=== PATIENT | female | born 1935 | race Caucasian/White ===

== ENCOUNTER 2016-12-13 14:01 | Emergency (ER) | payer OTHER ==
[~2016-12-13 14:01] MED LIST: ANASTROZOLE1 MG PO; ASPIRIN ADULT L81 MG PO; COZAAR25 MG PO; FUROSEMIDE20 MG PO
--- NOTE | 2016-12-13 15:33 | DIAGNOSTIC IMAGING REPORT ---
PROCEDURE: XR CHEST 1 VIEW INDICATION: CHEST PAIN TECHNIQUE: Portable AP view 02:52 p.m. COMPARISON: Chest 12/06/2015 FINDINGS: Stable mild cardiomegaly. Normal pulmonary vascularity. Lungs are clear. Stable bony thorax. Large hiatal hernia IMPRESSION: 1. Large hiatal hernia.
--- NOTE | 2016-12-13 16:11 | ED ORDER SUMMARY ---
..... Patient: LORRAINE MADERA OrderSheet [facility] VisitID: [id number] [place] [address] 81y, F Registration Date/Time: 12/13/2016 ORDER SHEET Weight: 69.3 kg (stated) Allergies: Clindamycin HCl, Etodolac, Penicillins GENERAL ORDERS: Chest 1V Urgent (14:41 12/13/2016 PHutchinson DO) (Ack 14:45 RKaruga) (15:21 JSanders R.N.) Director Public (Continuous) (14:42 12/13/2016 PHutchinson DO) (15:05 JSanders R.N.) UA-Culture if indicated Urgent (14:42 12/13/2016 PHutchinson DO) (Ack 14:45 RKaruga) (15:05 JSanders R.N.) Cardiac Panel Stat (14:42 12/13/2016 PHutchinson DO) (Ack 14:45 RKaruga) (15:20 JSanders R.N.) BNP Urgent (14:42 12/13/2016 PHutchinson DO) (Ack 14:45 RKaruga) (15:20 JSanders R.N.) D-Dimer Urgent (14:42 12/13/2016 PHutchinson DO) (Ack 14:45 RKaruga) (14:45 PHutchinson DO) (Cancelled: Other14:45 PHutchinson DO) Amylase Urgent (14:42 12/13/2016 PHutchinson DO) (Ack 14:45 RKaruga) (15:20 JSanders R.N.) PT with INR Urgent (14:42 12/13/2016 PHutchinson DO) (Ack 14:45 RKaruga) (15:20 JSanders R.N.) Lipase Urgent (14:42 12/13/2016 PHutchinson DO) (Ack 14:45 RKaruga) (15:20 JSanders R.N.) TSH Urgent (14:42 12/13/2016 PHutchinson DO) (Ack 14:45 RKaruga) (15:20 JSanders R.N.) Pulse oximeter (14:42 12/13/2016 [facility]) (15:05 JSanders R.N.) EKG - ER Stat (14:42 12/13/2016 [facility]) (Ack 14:47 RKaruga) (14:51 LTapper) Vitals (14:42 12/13/2016 [facility] DO) (15:05 JSanders R.N.) Diet (Please order in [employer]) (heart healthy ) (start with dinner tonight please ) (17:02 12/13/2016 DDean R.N. per protocol) (17:22 JSanders R.N.) MEDICATION ORDERS: Aspirin PO 325 mg (NOW) (14:41 12/13/2016 [facility]) (Cancelled: [id number] [facility]) Aspirin PO 325 mg (Do not crush or chew, NOW) (15:19 12/13/2016 [facility]) (15:26 JSanders R.N.) Potassium Chloride PO 40 meq (NOW) (17:04 12/13/2016 [facility]) (17:41 JSanders R.N.) Lovenox Subcut 60 mg (HIGH ALERT MEDICATION, NOW) (17:05 12/13/2016 [facility]) (17:34 JSanders R.N.) NitroGLYCERIN Paste Topical 1.5 in. (NOW, to CW) (17:05 12/13/2016 [facility]) (17:42 JSanders R.N.) IV FLUIDS: IV NS : initial bolus 250 mL (1000 mL/hr), then 250 mL/hr for X3 (NOW) (14:42 12/13/2016 [facility]) (15:38 JSanders R.N.) Protonix IVP 40mg 40 mg (Mix in NS 10ml over 2min) (17:28 12/13/2016 [facility]) (17:59 JSanders R.N.) ORDER SHEET NOTES: [Electronically signed by Jeannette Tenorio R.N. (19:19 12/13/2016)] [Electronically signed by Zenon Paredes DO (23:53 12/13/2016)] [Electronically locked/signed by Jeannette Tenorio R.N. (19:19 12/13/2016)]
--- NOTE | 2016-12-13 16:11 | ED ORDER SUMMARY ---
..... Patient: LORRAINE MADERA OrderSheet [facility] VisitID: [id number] [place] [address] 81y, F Registration Date/Time: 12/13/2016 ORDER SHEET Weight: 69.3 kg (stated) Allergies: Clindamycin HCl, Etodolac, Penicillins GENERAL ORDERS: Chest 1V Urgent (14:41 12/13/2016 PHutchinson DO) (Ack 14:45 RKaruga) (15:21 JSanders R.N.) Manager Of Marketing (Continuous) (14:42 12/13/2016 PHutchinson DO) (15:05 JSanders R.N.) UA-Culture if indicated Urgent (14:42 12/13/2016 PHutchinson DO) (Ack 14:45 RKaruga) (15:05 JSanders R.N.) Cardiac Panel Stat (14:42 12/13/2016 PHutchinson DO) (Ack 14:45 RKaruga) (15:20 JSanders R.N.) BNP Urgent (14:42 12/13/2016 PHutchinson DO) (Ack 14:45 RKaruga) (15:20 JSanders R.N.) D-Dimer Urgent (14:42 12/13/2016 PHutchinson DO) (Ack 14:45 RKaruga) (14:45 PHutchinson DO) (Cancelled: Other14:45 PHutchinson DO) Amylase Urgent (14:42 12/13/2016 PHutchinson DO) (Ack 14:45 RKaruga) (15:20 JSanders R.N.) PT with INR Urgent (14:42 12/13/2016 PHutchinson DO) (Ack 14:45 RKaruga) (15:20 JSanders R.N.) Lipase Urgent (14:42 12/13/2016 PHutchinson DO) (Ack 14:45 RKaruga) (15:20 JSanders R.N.) TSH Urgent (14:42 12/13/2016 PHutchinson DO) (Ack 14:45 RKaruga) (15:20 JSanders R.N.) Pulse oximeter (14:42 12/13/2016 [facility]) (15:05 JSanders R.N.) EKG - ER Stat (14:42 12/13/2016 [facility]) (Ack 14:47 RKaruga) (14:51 LTapper) Vitals (14:42 12/13/2016 [facility] DO) (15:05 JSanders R.N.) Diet (Please order in [employer]) (heart healthy ) (start with dinner tonight please ) (17:02 12/13/2016 DDean R.N. per protocol) (17:22 JSanders R.N.) MEDICATION ORDERS: Aspirin PO 325 mg (NOW) (14:41 12/13/2016 [facility]) (Cancelled: [id number] [facility]) Aspirin PO 325 mg (Do not crush or chew, NOW) (15:19 12/13/2016 [facility]) (15:26 JSanders R.N.) Potassium Chloride PO 40 meq (NOW) (17:04 12/13/2016 [facility]) (17:41 JSanders R.N.) Lovenox Subcut 60 mg (HIGH ALERT MEDICATION, NOW) (17:05 12/13/2016 [facility]) (17:34 JSanders R.N.) NitroGLYCERIN Paste Topical 1.5 in. (NOW, to CW) (17:05 12/13/2016 [facility]) (17:42 JSanders R.N.) IV FLUIDS: IV NS : initial bolus 250 mL (1000 mL/hr), then 250 mL/hr for X3 (NOW) (14:42 12/13/2016 [facility]) (15:38 JSanders R.N.) Protonix IVP 40mg 40 mg (Mix in NS 10ml over 2min) (17:28 12/13/2016 [facility]) (17:59 JSanders R.N.) ORDER SHEET NOTES: [Electronically signed by Jeannette Tenorio R.N. (19:19 12/13/2016)] [Electronically signed by Zenon Paredes DO (23:53 12/13/2016)] [Electronically locked/signed by Jeannette Tenorio R.N. (19:19 12/13/2016)]
--- NOTE | 2016-12-13 16:11 | ED NURSING NOTES ---
Clinical Report - Nurses [facility] [address] [place] [address] 12/13/2016 14:08 Patient: LORRAINE MADERA TRIAGE Triage time 14:Dec 13 2016. Acuity: LEVEL 3. Chief Complaint: SHORTNESS OF BREATH and WHEEZING and (Patient has had a cough since June gradually getting worse, chest pain once every three weeks). 14:34 12/13/16. SEPSIS SCREEN: Sepsis Screen. Negative (no infection suspected/documented). PILAR COMA SCORE: [place] Coma Scale: 15- eyes open spontaneously (4); best verbal response- oriented x 4 (5); best motor response- obeys commands (6). --14:34 Jeannette Tenorio R.N. 14:24 12/13/16. BP: 157/70 (regular adult cuff) taken on the left arm, while sitting. HR: 89. RR: 18. O2 saturation: 100% on room air. Temp: 98.4 F (oral). Pain level now: 0/10. --14:34 Jeannette Tenorio R.N. Weight: 69.3 kg stated. Height/Length: 63 inches Per Patient. BMI: 27.1. --14:28 Jeannette Tenorio R.N. Medications Anastrozole Oral (Tablet 1 mg) 1 tablet, daily. Furosemide Oral (Tablet 20 mg) 1 tablet, daily. Losartan Potassium Oral (Tablet 100 mg) 1 tablet, daily. --14:29 Jeannette Tenorio R.N. The following entry was struck and corrected by Jeannette Tenorio R.N., 16:12 (12/13/16) Reason for correction - other(correction). <<STRICKEN ENTRY-- Losartan Potassium Oral, daily. --14:29 Jeannette Tenorio R.N. --END STRIKE>> The following entry was struck and corrected by Jeannette Tenorio R.N., 16:12 (12/13/16) Reason for correction - other(correction). <<STRICKEN ENTRY-- Anastrozole Oral. --14:29 Jeannette Tenorio R.N. --END STRIKE>> The following entry was struck and corrected by Jeannette Tenorio R.N., 16:12 (12/13/16) Reason for correction - other(correction). <<[facility]-- Furosemide Oral. --14:29 Jeannette Tenorio R.N. --END STRIKE>>. Allergies Clindamycin HCl. Etodolac. Penicillins. --14:31 Jeannette Tenorio R.N. History Arrived by private vehicle. Historian: patient. This started today. ( Patient was just at today, they wanted to transfer her but she wanted to come ER, Took nitro last night and Chest pain was relieved). She has had a cough and chest pain. Treatment [employer]: None. PAST MEDICAL HX: Hypertension. Congestive heart failure. SOCIAL HX: Former smoker, end date 1961. No alcohol use or drug use. No infectious disease exposure. ABUSE ASSESSMENT: No report of abuse. --14:34 Jeannette Tenorio R.N. PROBLEMS: Cancer [Active]. --14:31 Jeannette Tenorio R.N. Chest Pain. Heart Disease. Coronary Artery Disease. Abnormal Test. Arrhythmia. Unstable Angina. --14:31 Jeannette Tenorio R.N. Cataracts. Chronic kidney disease stage 3. Gastroesophageal Reflux Disease. Hyperlipidemia. Atrial Fibrillation. DVT - Deep Venous Thrombosis. GI Bleeding. Arthritis. --16:10 Jeannette Tenorio R.N. Breast Cancer. --16:11 Jeannette Tenorio R.N. The following entry was modified by Jeannette Tenorio R.N., 16:10 <<[facility] ENTRY-- Congestive Heart Failure. --03:34 Jeannette Tenorio R.N. --END STRIKE>> The following entry was modified by Jeannette Tenorio R.N., 16:10 <<[facility] ENTRY-- Hypertension. --01:20 Jeannette Tenorio R.N. --END STRIKE>>. ADDITIONAL SURGERIES: Fracture Repair. Hysterectomy. --14:31 Jeannette Tenorio R.N. Coronary Angioplasty. --16:10 Jeannette Tenorio R.N. Interventions ID band on patient. To treatment room. --14:34 Jeannette Tenorio R.N. PHYSICAL ASSESSMENT 14:37 12/13/16. Ambulatory to room. GENERAL / NEURO / PSYCH: Alert. Oriented X 4. RESPIRATORY: No respiratory distress. Respirations not labored. Breath sounds within normal limits. CVS: Capillary refill less than 2 seconds. GI / : Abdomen soft and nontender. EXTREMITIES: No lower extremity edema. SKIN: Skin is warm. Normal skin turgor. --14:37 Jeannette Tenorio R.N. NURSING PROGRESS NOTES 14:37 12/13/16. The plan of care for this patient has been created. Monitoring of patient in place. Patient gowned. Head of bed elevated. Reassurance given. Two patient identifiers checked. Call light placed in reach. Side rails up x 1. Bed placed in lowest position. Brakes of bed on. Patient ready for evaluation- chart flagged and ED physician notified. --14:37 Jeannette Tenorio R.N. EKG time: (14:47 PM). EKG was performed by a tech and shown to the ED physician. --14:51 Catrachito Lei 15:12 12/13/2016 Site #1 started via IV in the left antecubital space with an 20g angiocath, with aseptic technique and good blood return; one attempt. Blood drawn: rainbow set. Saline lock flushed with 10 mL saline. --15:27 Jeannette Tenorio R.N. 15:26 12/13/2016 Aspirin PO Tablets 325 mg given. Allergies verified and confirmed 5 rights. --15:26 Jeannette Tenorio R.N. 15:30 12/13/16. ( Patient reading through paperwork, she informed me she has hx of GI bleed but physician said to go ahead and give. Patient doing well, alert and laughing). --15:30 Jeannette Tenorio R.N. 15:27 12/13/16. BP: 174/67 (regular adult cuff) taken on the right arm, while sitting. HR: 70. RR: 18. O2 saturation: 100% on room air. Temp: 98.2 F (oral). Pain level now: 0/10. --15:30 Jeannette Tenorio R.N. 15:38 12/13/2016 Started bag #1 1000 mL IV Fluids IV NS (Saline); at 250 mL/hr over 1 hour(s) via site #1 via IV pump. Allergies verified and confirmed 5 rights. IV patency established. IV site checked: no pain, redness, or swelling. IV flushed thoroughly pre- and post-medication administration. --15:38 Jeannette Tenorio R.N. 15:59 12/13/16. BP: 204/64 (regular adult cuff) taken on the right arm, while sitting. HR: 70. RR: 18 (regular). O2 saturation: 100% on room air. Temp: 97.4 F. Pain level now: 0/10. --16:01 Jeannette Tenorio R.N. 16:01 12/13/16. ( patients BP is increasing, she did mention she took her BP meds today, requested patient put paperwork aside and lay back to relax, she requested TV be turned on because that usually helps with HTN). --16:01 Jeannette Tenorio R.N. 16:02 12/13/2016 IV Fluids IV NS via IV site #1 Rate Changed: bag #1 250 mL/hr via IV pump. IV patency established. IV site checked: no pain, redness, or swelling. IV flushed thoroughly. Confirmed 5 Rights. --16:02 Jeannette Tenorio R.N. 16:05 12/13/16. ( Lung sounds are clear, continued another 250mL per orders). --16:05 Jeannette Tenorio R.N. 16:30 12/13/2016 IV Fluids IV NS via IV site #1 Rate Changed: bag #1 decreased to 250 mL/hr via IV pump. IV patency established. IV site checked: no pain, redness, or swelling. IV flushed thoroughly. --16:30 Yudy Vega R.N. 16:30 12/13/16. BP: 165/85. HR: 67. RR: 18. O2 saturation: 100%. Temp: deferred. Pain level now: 0/10. --16:30 Yudy Vega R.N. 16:36 12/13/16. --16:36 Jeannette Tenorio R.N. 16:35 12/13/16. BP: 165/86 (regular adult cuff) taken on the right arm, while sitting. HR: 66. RR: 18 (regular). O2 saturation: 100% on room air. Temp: 98 F (oral). Pain level now: 0/10. --16:36 Jeannette Tenorio R.N. 17:19 12/13/16. BP: 142/70 (regular adult cuff) taken on the right arm, while sitting. HR: 79. RR: 18 (regular). O2 saturation: 100% on room air. Temp: 98.2 F (oral). Pain level now: 0/10. --17:20 Jeannette Tenorio R.N. 17:20 12/13/16. ( Patient doing well, she says she hasn't coughed since being here. LS clear). --17:20 Jeannette Tenorio R.N. 17:34 12/13/2016 Lovenox (Enoxaparin Sodium) Subcutaneous 60 mg given. Given in the left abdomen. Allergies verified and confirmed 5 rights. --17:34 Jeannette Tenorio R.N. 17:41 12/13/2016 Potassium Chloride (Potassium Chloride ER) PO Tablets 40 meq given. Allergies verified and confirmed 5 rights. --17:41 Jeannette Tenorio R.N. 17:42 12/13/2016 NITROGLYCERIN PASTE Topical Paste 1.5 inch. Applied to the left chest. Allergies verified and confirmed 5 rights. --17:42 Jeannette Tenorio R.N. 17:42 12/13/16. ( Patient eating dinner). --17:42 Jeannette Tenorio R.N. 17:50 12/13/2016 PROTONIX (Pantoprazole Sodium) IVP 40 mg given over 10 minute(s) via site #1. Allergies verified and confirmed 5 rights. IV patency established. IV site checked: no pain, redness, or swelling. IV flushed thoroughly pre- and post-medication administration. IVP given by RN. --17:59 Jeannette Tenorio R.N. 18:20 12/13/16. ( Patient finished with dinner, working on her cell phone, she is feeling well per patient). --18:20 Jeannette Tenorio R.N. 18:19 12/13/16. BP: 141/57 (regular adult cuff) taken on the right arm, while sitting. HR: 78. RR: 16 (regular). O2 saturation: 98% on room air. Temp: 98.4 F. Pain level now: 0/10. --18:20 Jeannette Tenorio R.N. 18:53 12/13/16. ( Patient approached to sign paperwork for transfer but patient refused and said she did not want to go to [facility] and be admitted, I explained that the doctor informed her it would be an admit to [facility] but patient still refuses and says she would like to go home. Physician notified of this). --18:53 Jeannette Tenorio R.N. 19:05 12/13/16. Care transferred and report given (EMS). --19:05 Jeannette Tenorio R.N. 19:02 12/13/16. BP: 160/50 (regular adult cuff) taken on the right arm, while sitting. HR: 78. RR: 16 (regular). O2 saturation: 100% on room air. Temp: 98.4 F (oral). Pain level now: 0/10. --19:05 Jeannette Tenorio R.N. DISPOSITION / DISCHARGE 19:16 12/13/2016 IV Fluids IV NS Discontinued: bag #1 completed upon discharge. Total amount infused: 1000 mL. IV patency established. IV site checked: no pain, redness, or swelling. IV flushed thoroughly. --19:16 Jeannette Tenorio R.N. Departure time: :Dec 13 2016. Transferred to [facility]. Summary of care provided to EMS (Dec 13 2016). Report was given to an EMT/P at the bedside. Report included patient's care, treatment, medications, reviewed medication reconcilliation, and condition (including any recent changes or anticipated changes). All questions were answered. Report was acknowledged and care was transferred. ( Patient transported by ALS with stock feeder to [facility] for admit/observance). --19:18 Jeannette Tenorio R.N. Locked/Released at 12/13/2016 19:19 by Jeannette Tenorio R.N.
--- NOTE | 2016-12-13 16:11 | ED CLINICAL REPORT ---
Clinical Report - Physicians/Mid Levels [facility] [address] [place] [address] 12/13/2016 14:08 Patient: LORRAINE MADERA Time Seen: 14:41. Arrived- By private vehicle. Historian- patient. HISTORY OF PRESENT ILLNESS Chief Complaint: CHEST PAIN. SHORTNESS OF BREATH. This started about 3 weeks ago and is still present. It was gradual in onset and has been waxing/waning. Onset during light activity. At its maximum, severity described as moderate. When seen in the E.D., it was gone. Modifying factors- worsened by exertion. Relieved by nitroglycerin (one, from patients own supply). It is described as pressure and it is described as located in the left chest area. No radiation. No nausea or vomiting. She has had difficulty breathing and has experienced diaphoresis. Similar symptoms previously: Diagnosis: coronary disease. Recent medical care: The patient was seen recently in the office. Seen for similar symptoms. REVIEW OF SYSTEMS No fever, chills, pedal edema, calf pain or fainting episodes. No headache, sore throat, abdominal pain, black stools or difficulty with urination. No skin rash, enlarged lymph nodes, joint pain or bloody stools. The patient has had a cough. She has had moderate, intermittent palpitations. The palpitations have lasted only minutes. All systems otherwise negative, except as recorded above. PAST HISTORY See nurses notes. Hypertension. Coronary artery disease. Prior angioplasty. Coronary stent. Congestive heart failure. No history of aortic disease or pulmonary embolism. GI bleeding told not to take ASA for this reason - no allergy. Osteoarthritis. Surgeries: Coronary angioplasty with stent placement. Had hysterectomy. Medications: Anastrozole Oral (Tablet 1 mg) 1 tablet, daily. Furosemide Oral (Tablet 20 mg) 1 tablet, daily. Losartan Potassium Oral (Tablet 100 mg) 1 tablet, daily. Allergies: Clindamycin HCl. Etodolac. Penicillins. SOCIAL HISTORY Former smoker, end date 1961. No alcohol use or drug use. Is a local resident. ADDITIONAL NOTES The nursing notes have been reviewed. PHYSICAL EXAM Vital Signs: 12/13/2016 14:24 BP: 157/70. HR: 89. RR: 18. O2 saturation: 100%. Temp: 98.4 F. Pain level now: 0/10. Appearance: Alert. Oriented X3. No acute distress. Eyes: Pupils equal, round and reactive to light. Eyes normal inspection. ENT: Pharynx normal. Neck: Normal inspection. Neck supple. CVS: Normal heart rate and rhythm. Heart sounds normal. Pulses normal. Respiratory: No respiratory distress. Breath sounds normal. Chest nontender. Abdomen: Soft and nontender. No mass. Back: Normal external inspection. Skin: No cyanosis. Skin warm and dry. Normal skin color. Normal skin turgor. No pallor or diaphoresis. Extremities: Extremities exhibit normal ROM. No calf tenderness. Neuro: Oriented X 3. No motor deficit. LABS, X-RAYS, AND EKG EKG: EKG time: (14:47). Normal sinus rhythm. Rate: 75. Normal P waves. Normal JAYASHREE. Q waves in lead III and aVF consistent with inferior infarction. LVH. Non-specific ST segment / T wave abnormalities. Non-specific T wave flattening in lead III and aVF. The study has been interpreted contemporaneously by me. The EKG appears to be a good tracing. Rhythm Strip #1: Normal sinus rhythm. Regular rhythm. Narrow QRS complexes. No ectopy. Chest X-ray: No acute disease. (large hiatal hernia). Views: PA. Technique: good. The X-rays were interpreted contemporaneously by me. A comparison with prior films reveals that the findings are unchanged. Laboratory Tests: UA-Culture if indicated: (ASHLEY: 12/13/2016 14:30) ( MsgRcvd 12/13/2016 15:02) Final results Test Result Flag Units (Reference) URINE COLOR YELLOW URINE APPEARANCE CLEAR URINE GLUCOSE NEGATIVE (NEGATIVE) URINE BILIRUBIN NEGATIVE (NEGATIVE) URINE KETONE NEGATIVE (NEGATIVE) URINE SPECIFIC GRAVITY <= 1.005 L (1.010-1.030) URINE PH 5.5 (5.0-8.0) URINE PROTEIN NEGATIVE (NEGATIVE) URINE UROBILINOGEN 0.2 EU/dL (0.2-1.0) URINE NITRITE NEGATIVE (NEGATIVE) URINE BLOOD NEGATIVE (NEGATIVE) URINE LEUK ESTERASE NEGATIVE (NEGATIVE) URINE RBC NONE SEEN rbc/hpf (0-1) URINE WBC RARE wbc/hpf (0-1) URINE EPITHELIAL CELLS RARE EPI/hpf (0-5) URINE BACTERIA NONE SEEN (NONE SEEN) URINE COMMENT CULT NOT INDICATED URINE CULTURES ARE SET-UP BASED ON THE FOLLOWING CRITERIA:POSITIVE NITRITEPOSITIVE LEUKOCYTE ESTERASEGREATER THAN 10 WHITE BLOOD CELLSMODERATE (2+) OR GREATER BACTERIA CBC w Diff: (ASHLEY: 12/13/2016 15:15) ( [facility] 12/13/2016 15:28) Final results Test Result Flag Units (Reference) WHITE BLOOD COUNT 9.5 K/uL (4.5-11.5) RED BLOOD COUNT 3.13 L M/uL (4.00-5.20) HEMOGLOBIN 10.2 L gm/dL (12.0-16.0) HEMATOCRIT 29.9 L % (36.0-46.0) MEAN CELL VOLUME 96 fL (80-100) MEAN CORPUSCULAR HGB 33 pg (26-34) MEAN CORPUSCULAR HGB CONC 34 g/dL (31-37) RED CELL DISTRIBUTION WIDTH 13.9 % (11.6-14.8) PLATELET COUNT 313 K/uL (150-400) NEUTROPHIL % 64.8 % (50-75) LYMPH % 23.6 L % (25-40) MONO % 10.2 % (3-14) EOSINOPHIL % 1.2 % (0-4) BASOPHIL % 0.2 % (0-2) PT with INR: (ASHLEY: 12/13/2016 15:15) ( [facility] 12/13/2016 15:33) Final results Test Result Flag Units (Reference) INR 0.9 (0.8-1.2) Low Intensity Therapy: INR 1.5-2.0 PT range 18.5-23.1Mod.Intensity Therapy: INR 2.0-3.0 PT range 23.1-31.5High Intensity Therapy: INR 2.5-3.5 PT range 27.4-35.5High Intensity Therapy 2: INR 3.0-4.0 PT range 31.5-39.3 BNP: (ASHLEY: 12/13/2016 15:15) ( [facility] 12/13/2016 15:46) Final results Test Result Flag Units (Reference) B-TYPE NATRIURETIC PEPTIDE 168 H pg/ml (5-100) Lipase: (ASHLEY: 12/13/2016 15:15) ( [facility] 12/13/2016 16:51) Final results Test Result Flag Units (Reference) LIPASE 123 U/L (73-393) AMYLASE 57 U/L (25-115) THYROID STIMULATING HORMONE 2.016 uIU/mL (0.30-3.74) CHEM 13 PANEL: (ASHLEY: 12/13/2016 15:15) ( [facility] 12/13/2016 16:04) Final results Test Result Flag Units (Reference) GLUCOSE 108 mg/dL (70-110) BUN 17 mg/dL (7-18) CREATININE 1.4 H mg/dL (0.6-1.3) Estimated GFR 38.26 mL/min Estimated GFR- 46.37 mL/min Note: Persistent reduction over 3 months in eGFR<60 mL/min/1.73 m2 defines CKD. Patients with eGFR values>=60 mL/min/1.73 m2 may also have CKD if evidence ofpersistent proteinuria. Additional information may be foundat www.kidney.org. SODIUM 141 mmol/L (136-145) POTASSIUM 3.2 L mmol/L (3.5-5.1) CHLORIDE 102 mmol/L (98-107) CARBON DIOXIDE 27 mmol/L (21-32) CALCIUM 10.2 H mg/dL (8.5-10.1) TOTAL PROTEIN 7.6 g/dL (6.4-8.2) ALBUMIN 4.3 g/dL (3.3-5.0) BILIRUBIN, TOTAL 0.6 mg/dL (0.0-1.0) ALKALINE PHOSPHATASE 83 U/L (46-116) AST (SGOT) 23 U/L (15-37) ALT (SGPT) 25 U/L (12-78) MAGNESIUM 2.0 mg/dL (1.8-2.4) CPK 58 U/L (24-260) TROPONIN I <0.05 ng/mL (0.00-1.5) TROPONIN REFERENCE RANGE:<0.1 NEGATIVE0.1-1.5 INDETERMINANT>1.5 POSITIVE . Pulse Oximetry: 12/13/2016 14:24 O2 saturation: 100%. (FIO2 - room air). Interpretation: normal. PROGRESS AND PROCEDURES Course of Care: ASA 325 mg PO given. Lovenox 60 mg subQ given. Pt with concerning history for angina. Neg trop I now, but will need repeat enzymes and functional assessment. 17:18 12/13/16. admit on hold (after initial d/w Dr. Staples and transition orders written) - Dr Staples refusing until he can talk with Dr León in about 2 hours about my suggestion for performing treadmill tomorrow night or before [address] Staples is suggesting transfer. Patient is stable. Discussed case with patient's primary care provider, (Maikol). Reviewed test results. Agreed upon treatment plan and decision to place in observation. Refers case to other health care provider. Discussed case with hospitalist, (Jhoan). Reviewed test results. Agreed upon treatment plan and decision to place in observation. Refers case to other health care provider. Call placed to health care provider [facility] hospitalist - call returned 17:58. Consult obtained. Dr Barreto ([facility]) - feels admission and rule out with functional assessment is appropriate - refers to the hospitalist for admission -Dr. Barreto paged 17:24. Patient/family counseled. Old ED records reviewed. Transfer orders written. Disposition: Transferred to [facility]. Condition: stable. CLINICAL IMPRESSION Precordial chest pain characterized as "discomfort" .12 lead EKG performed. Chronic systolic, congestive heart failure. Hiatal hernia. No obstruction or gangrene. Essential hypertension. Moderate chronic anemia. Hypokalemia. Renal insufficiency. (Electronically signed by Zenon Paredes DO 12/13/2016 23:53)
--- NOTE | 2016-12-13 16:11 | ED CLINICAL REPORT ---
Clinical Report - Physicians/Mid Levels [facility] [address] [place] [address] 12/13/2016 14:08 Patient: LORRAINE MADERA Time Seen: 14:41. Arrived- By private vehicle. Historian- patient. HISTORY OF PRESENT ILLNESS Chief Complaint: CHEST PAIN. SHORTNESS OF BREATH. This started about 3 weeks ago and is still present. It was gradual in onset and has been waxing/waning. Onset during light activity. At its maximum, severity described as moderate. When seen in the E.D., it was gone. Modifying factors- worsened by exertion. Relieved by nitroglycerin (one, from patients own supply). It is described as pressure and it is described as located in the left chest area. No radiation. No nausea or vomiting. She has had difficulty breathing and has experienced diaphoresis. Similar symptoms previously: Diagnosis: coronary disease. Recent medical care: The patient was seen recently in the office. Seen for similar symptoms. REVIEW OF SYSTEMS No fever, chills, pedal edema, calf pain or fainting episodes. No headache, sore throat, abdominal pain, black stools or difficulty with urination. No skin rash, enlarged lymph nodes, joint pain or bloody stools. The patient has had a cough. She has had moderate, intermittent palpitations. The palpitations have lasted only minutes. All systems otherwise negative, except as recorded above. PAST HISTORY See nurses notes. Hypertension. Coronary artery disease. Prior angioplasty. Coronary stent. Congestive heart failure. No history of aortic disease or pulmonary embolism. GI bleeding told not to take ASA for this reason - no allergy. Osteoarthritis. Surgeries: Coronary angioplasty with stent placement. Had hysterectomy. Medications: Anastrozole Oral (Tablet 1 mg) 1 tablet, daily. Furosemide Oral (Tablet 20 mg) 1 tablet, daily. Losartan Potassium Oral (Tablet 100 mg) 1 tablet, daily. Allergies: Clindamycin HCl. Etodolac. Penicillins. SOCIAL HISTORY Former smoker, end date 1961. No alcohol use or drug use. Is a local resident. ADDITIONAL NOTES The nursing notes have been reviewed. PHYSICAL EXAM Vital Signs: 12/13/2016 14:24 BP: 157/70. HR: 89. RR: 18. O2 saturation: 100%. Temp: 98.4 F. Pain level now: 0/10. Appearance: Alert. Oriented X3. No acute distress. Eyes: Pupils equal, round and reactive to light. Eyes normal inspection. ENT: Pharynx normal. Neck: Normal inspection. Neck supple. CVS: Normal heart rate and rhythm. Heart sounds normal. Pulses normal. Respiratory: No respiratory distress. Breath sounds normal. Chest nontender. Abdomen: Soft and nontender. No mass. Back: Normal external inspection. Skin: No cyanosis. Skin warm and dry. Normal skin color. Normal skin turgor. No pallor or diaphoresis. Extremities: Extremities exhibit normal ROM. No calf tenderness. Neuro: Oriented X 3. No motor deficit. LABS, X-RAYS, AND EKG EKG: EKG time: (14:47). Normal sinus rhythm. Rate: 75. Normal P waves. Normal JAYASHREE. Q waves in lead III and aVF consistent with inferior infarction. LVH. Non-specific ST segment / T wave abnormalities. Non-specific T wave flattening in lead III and aVF. The study has been interpreted contemporaneously by me. The EKG appears to be a good tracing. Rhythm Strip #1: Normal sinus rhythm. Regular rhythm. Narrow QRS complexes. No ectopy. Chest X-ray: No acute disease. (large hiatal hernia). Views: PA. Technique: good. The X-rays were interpreted contemporaneously by me. A comparison with prior films reveals that the findings are unchanged. Laboratory Tests: UA-Culture if indicated: (ASHLEY: 12/13/2016 14:30) ( MsgRcvd 12/13/2016 15:02) Final results Test Result Flag Units (Reference) URINE COLOR YELLOW URINE APPEARANCE CLEAR URINE GLUCOSE NEGATIVE (NEGATIVE) URINE BILIRUBIN NEGATIVE (NEGATIVE) URINE KETONE NEGATIVE (NEGATIVE) URINE SPECIFIC GRAVITY <= 1.005 L (1.010-1.030) URINE PH 5.5 (5.0-8.0) URINE PROTEIN NEGATIVE (NEGATIVE) URINE UROBILINOGEN 0.2 EU/dL (0.2-1.0) URINE NITRITE NEGATIVE (NEGATIVE) URINE BLOOD NEGATIVE (NEGATIVE) URINE LEUK ESTERASE NEGATIVE (NEGATIVE) URINE RBC NONE SEEN rbc/hpf (0-1) URINE WBC RARE wbc/hpf (0-1) URINE EPITHELIAL CELLS RARE EPI/hpf (0-5) URINE BACTERIA NONE SEEN (NONE SEEN) URINE COMMENT CULT NOT INDICATED URINE CULTURES ARE SET-UP BASED ON THE FOLLOWING CRITERIA:POSITIVE NITRITEPOSITIVE LEUKOCYTE ESTERASEGREATER THAN 10 WHITE BLOOD CELLSMODERATE (2+) OR GREATER BACTERIA CBC w Diff: (ASHLEY: 12/13/2016 15:15) ( [facility] 12/13/2016 15:28) Final results Test Result Flag Units (Reference) WHITE BLOOD COUNT 9.5 K/uL (4.5-11.5) RED BLOOD COUNT 3.13 L M/uL (4.00-5.20) HEMOGLOBIN 10.2 L gm/dL (12.0-16.0) HEMATOCRIT 29.9 L % (36.0-46.0) MEAN CELL VOLUME 96 fL (80-100) MEAN CORPUSCULAR HGB 33 pg (26-34) MEAN CORPUSCULAR HGB CONC 34 g/dL (31-37) RED CELL DISTRIBUTION WIDTH 13.9 % (11.6-14.8) PLATELET COUNT 313 K/uL (150-400) NEUTROPHIL % 64.8 % (50-75) LYMPH % 23.6 L % (25-40) MONO % 10.2 % (3-14) EOSINOPHIL % 1.2 % (0-4) BASOPHIL % 0.2 % (0-2) PT with INR: (ASHLEY: 12/13/2016 15:15) ( [facility] 12/13/2016 15:33) Final results Test Result Flag Units (Reference) INR 0.9 (0.8-1.2) Low Intensity Therapy: INR 1.5-2.0 PT range 18.5-23.1Mod.Intensity Therapy: INR 2.0-3.0 PT range 23.1-31.5High Intensity Therapy: INR 2.5-3.5 PT range 27.4-35.5High Intensity Therapy 2: INR 3.0-4.0 PT range 31.5-39.3 BNP: (ASHLEY: 12/13/2016 15:15) ( [facility] 12/13/2016 15:46) Final results Test Result Flag Units (Reference) B-TYPE NATRIURETIC PEPTIDE 168 H pg/ml (5-100) Lipase: (ASHLEY: 12/13/2016 15:15) ( [facility] 12/13/2016 16:51) Final results Test Result Flag Units (Reference) LIPASE 123 U/L (73-393) AMYLASE 57 U/L (25-115) THYROID STIMULATING HORMONE 2.016 uIU/mL (0.30-3.74) CHEM 13 PANEL: (ASHLEY: 12/13/2016 15:15) ( [facility] 12/13/2016 16:04) Final results Test Result Flag Units (Reference) GLUCOSE 108 mg/dL (70-110) BUN 17 mg/dL (7-18) CREATININE 1.4 H mg/dL (0.6-1.3) Estimated GFR 38.26 mL/min Estimated GFR- 46.37 mL/min Note: Persistent reduction over 3 months in eGFR<60 mL/min/1.73 m2 defines CKD. Patients with eGFR values>=60 mL/min/1.73 m2 may also have CKD if evidence ofpersistent proteinuria. Additional information may be foundat www.kidney.org. SODIUM 141 mmol/L (136-145) POTASSIUM 3.2 L mmol/L (3.5-5.1) CHLORIDE 102 mmol/L (98-107) CARBON DIOXIDE 27 mmol/L (21-32) CALCIUM 10.2 H mg/dL (8.5-10.1) TOTAL PROTEIN 7.6 g/dL (6.4-8.2) ALBUMIN 4.3 g/dL (3.3-5.0) BILIRUBIN, TOTAL 0.6 mg/dL (0.0-1.0) ALKALINE PHOSPHATASE 83 U/L (46-116) AST (SGOT) 23 U/L (15-37) ALT (SGPT) 25 U/L (12-78) MAGNESIUM 2.0 mg/dL (1.8-2.4) CPK 58 U/L (24-260) TROPONIN I <0.05 ng/mL (0.00-1.5) TROPONIN REFERENCE RANGE:<0.1 NEGATIVE0.1-1.5 INDETERMINANT>1.5 POSITIVE . Pulse Oximetry: 12/13/2016 14:24 O2 saturation: 100%. (FIO2 - room air). Interpretation: normal. PROGRESS AND PROCEDURES Course of Care: ASA 325 mg PO given. Lovenox 60 mg subQ given. Pt with concerning history for angina. Neg trop I now, but will need repeat enzymes and functional assessment. 17:18 12/13/16. admit on hold (after initial d/w Dr. Staples and transition orders written) - Dr Staples refusing until he can talk with Dr León in about 2 hours about my suggestion for performing treadmill tomorrow night or before [address] Staples is suggesting transfer. Patient is stable. Discussed case with patient's primary care provider, (Maikol). Reviewed test results. Agreed upon treatment plan and decision to place in observation. Refers case to other health care provider. Discussed case with hospitalist, (Jhoan). Reviewed test results. Agreed upon treatment plan and decision to place in observation. Refers case to other health care provider. Call placed to health care provider [facility] hospitalist - call returned 17:58. Consult obtained. Dr Barreto ([facility]) - feels admission and rule out with functional assessment is appropriate - refers to the hospitalist for admission -Dr. Barreto paged 17:24. Patient/family counseled. Old ED records reviewed. Transfer orders written. Disposition: Transferred to [facility]. Condition: stable. CLINICAL IMPRESSION Precordial chest pain characterized as "discomfort" .12 lead EKG performed. Chronic systolic, congestive heart failure. Hiatal hernia. No obstruction or gangrene. Essential hypertension. Moderate chronic anemia. Hypokalemia. Renal insufficiency. (Electronically signed by Zenon Paredes DO 12/13/2016 23:53)
--- NOTE | 2016-12-13 23:53 | ED MAR SUMMARY ---
..... Medication Administration Record [facility] [address] [place] [address] Patient: LORRAINE MADERA Visit ID: [id number] 81y, F Weight: 69.3 kg Height/Length: 63 in BMI: 27.1 ALLERGIES: Clindamycin HCl, Etodolac, Penicillins Given 15:26 12/13/2016 Jeannette Tenorio R.N. Medication Administered: ASPIRIN [PO], Dose: 325 mg Tablets PO. Medication Ordered: Aspirin PO 325 mg (Do not crush or chew, NOW). Start 15:38 12/13/2016 Jeannette Tenorio R.N., Stop 19:16 12/13/2016 Jeannette Tenorio R.N. Medication Administered: IV NS (SALINE), Dose: IV Fluids over 1 hour(s), Rate: 250 mL/hr, Dispensed: 1000 mL bag, Site: #1 left AC. Medication Ordered: IV NS : initial bolus 250 mL (1000 mL/hr), then 250 mL/hr for X3 (NOW). Given 17:34 12/13/2016 Jeannette Tenorio R.N. Medication Administered: LOVENOX [SUBCUTANEOUS] (ENOXAPARIN SODIUM), Dose: 60 mg Subcutaneous. Medication Ordered: Lovenox Subcut 60 mg (HIGH ALERT MEDICATION, NOW). Given 17:41 12/13/2016 Jeannette Tenorio R.N. Medication Administered: POTASSIUM CHLORIDE [PO] (POTASSIUM CHLORIDE ER), Dose: 40 meq Tablets PO. Medication Ordered: Potassium Chloride PO 40 meq (NOW). Given 17:42 12/13/2016 Jeannette Tenorio R.N. Medication Administered: NITROGLYCERIN PASTE [TOPICAL], Dose: 1.5 in. Paste Topical. Medication Ordered: NitroGLYCERIN Paste Topical 1.5 in. (NOW, to ). Given 17:50 12/13/2016 Jeannette Tenorio R.N. Medication Administered: PROTONIX [IVP] (PANTOPRAZOLE SODIUM), Dose: 40 mg IVP over 10 minute(s), Site: #1 left AC. Medication Ordered: Protonix IVP 40mg 40 mg (Mix in NS 10ml over 2min).
--- NOTE | 2016-12-13 23:53 | ED MAR SUMMARY ---
..... Medication Administration Record [facility] [address] [place] [address] Patient: LORRAINE MADERA Visit ID: [id number] 81y, F Weight: 69.3 kg Height/Length: 63 in BMI: 27.1 ALLERGIES: Clindamycin HCl, Etodolac, Penicillins Given 15:26 12/13/2016 Jeannette Tenorio R.N. Medication Administered: ASPIRIN [PO], Dose: 325 mg Tablets PO. Medication Ordered: Aspirin PO 325 mg (Do not crush or chew, NOW). Start 15:38 12/13/2016 Jeannette Tenorio R.N., Stop 19:16 12/13/2016 Jeannette Tenorio R.N. Medication Administered: IV NS (SALINE), Dose: IV Fluids over 1 hour(s), Rate: 250 mL/hr, Dispensed: 1000 mL bag, Site: #1 left AC. Medication Ordered: IV NS : initial bolus 250 mL (1000 mL/hr), then 250 mL/hr for X3 (NOW). Given 17:34 12/13/2016 Jeannette Tenorio R.N. Medication Administered: LOVENOX [SUBCUTANEOUS] (ENOXAPARIN SODIUM), Dose: 60 mg Subcutaneous. Medication Ordered: Lovenox Subcut 60 mg (HIGH ALERT MEDICATION, NOW). Given 17:41 12/13/2016 Jeannette Tenorio R.N. Medication Administered: POTASSIUM CHLORIDE [PO] (POTASSIUM CHLORIDE ER), Dose: 40 meq Tablets PO. Medication Ordered: Potassium Chloride PO 40 meq (NOW). Given 17:42 12/13/2016 Jeannette Tenorio R.N. Medication Administered: NITROGLYCERIN PASTE [TOPICAL], Dose: 1.5 in. Paste Topical. Medication Ordered: NitroGLYCERIN Paste Topical 1.5 in. (NOW, to ). Given 17:50 12/13/2016 Jeannette Tenorio R.N. Medication Administered: PROTONIX [IVP] (PANTOPRAZOLE SODIUM), Dose: 40 mg IVP over 10 minute(s), Site: #1 left AC. Medication Ordered: Protonix IVP 40mg 40 mg (Mix in NS 10ml over 2min).
--- NOTE | 2016-12-13 23:53 | ED MED RECONCILIATION SUMMARY ---
Patient: LORRAINE MADERA Medication Reconciliation Report [facility] VisitID: [id number] [address] [place] [address] 81y, F Registration Date/Time: 12/13/2016 Weight: 69.3 kg Height/Length: 63 in. BMI: 27.1 ALLERGIES: Clindamycin HCl, Etodolac, Penicillins The patient's Home Medications are listed below: THE FOLLOWING MEDICATIONS NEED TO BE RECONCILED: Anastrozole Oral (1 mg) 1 tablet, daily Furosemide Oral (20 mg) 1 tablet, daily Losartan Potassium Oral (100 mg) 1 tablet, daily The source(s) of the original Home Medication information: Not obtained. The following Medications were given to the patient in the Emergency Department: Aspirin [PO] PO 325 mg, administered: 12/13/2016 3:26:00 PM IV NS IV Fluids bolus 0, then 250 mL/hr, administered: 12/13/2016 3:38:00 PM Lovenox [Subcutaneous] Subcutaneous 60 mg, administered: 12/13/2016 5:34:00 PM Potassium Chloride [PO] PO 40 meq, administered: 12/13/2016 5:41:00 PM NITROGLYCERIN PASTE [TOPICAL] Topical 1.5 in., administered: 12/13/2016 5:42:00 PM PROTONIX [IVP] IVP 40 mg, administered: 12/13/2016 5:50:00 PM The following Medications were prescribed to the patient: None.
--- NOTE | 2016-12-13 23:53 | ED DISCHARGE INSTRUCTIONS ---
Patient: LORRAINE MADERA General Instructions [facility] VisitID: [id number] [address] [place] [place] [address] 81y, F Registration Date/Time: 12/13/2016 Precordial chest pain characterized as "discomfort" .12 lead EKG performed. Chronic systolic, congestive heart failure. Hiatal hernia. No obstruction or gangrene. Essential hypertension. Moderate chronic anemia. Hypokalemia. Renal insufficiency. (Electronically signed by Zenon Paredes DO 12/13/2016 23:53)
--- NOTE | 2016-12-13 23:53 | ED MED RECONCILIATION SUMMARY ---
Patient: LORRAINE MADERA Medication Reconciliation Report [facility] VisitID: [id number] [address] [place] [address] 81y, F Registration Date/Time: 12/13/2016 Weight: 69.3 kg Height/Length: 63 in. BMI: 27.1 ALLERGIES: Clindamycin HCl, Etodolac, Penicillins The patient's Home Medications are listed below: THE FOLLOWING MEDICATIONS NEED TO BE RECONCILED: Anastrozole Oral (1 mg) 1 tablet, daily Furosemide Oral (20 mg) 1 tablet, daily Losartan Potassium Oral (100 mg) 1 tablet, daily The source(s) of the original Home Medication information: Not obtained. The following Medications were given to the patient in the Emergency Department: Aspirin [PO] PO 325 mg, administered: 12/13/2016 3:26:00 PM IV NS IV Fluids bolus 0, then 250 mL/hr, administered: 12/13/2016 3:38:00 PM Lovenox [Subcutaneous] Subcutaneous 60 mg, administered: 12/13/2016 5:34:00 PM Potassium Chloride [PO] PO 40 meq, administered: 12/13/2016 5:41:00 PM NITROGLYCERIN PASTE [TOPICAL] Topical 1.5 in., administered: 12/13/2016 5:42:00 PM PROTONIX [IVP] IVP 40 mg, administered: 12/13/2016 5:50:00 PM The following Medications were prescribed to the patient: None.
--- NOTE | 2016-12-13 23:53 | ED DISCHARGE INSTRUCTIONS ---
Patient: LORRAINE MADERA General Instructions [facility] VisitID: [id number] [place] [address] 81y, F Registration Date/Time: 12/13/2016 Precordial chest pain characterized as "discomfort" .12 lead EKG performed. Chronic systolic, congestive heart failure. Hiatal hernia. No obstruction or gangrene. Essential hypertension. Moderate chronic anemia. Hypokalemia. Renal insufficiency. (Electronically signed by Zenon Paredes DO 12/13/2016 23:53)
== END 2016-12-13 19:15 | disposition short-term general hospital (02) ==
LOC: ED SRH 14:01 → TRANS SRH 15:09 → ED SRH 15:09
DX: R07.2 Precordial pain (principal); I50.22 Chronic systolic (congestive) heart failure; I10 Essential (primary) hypertension; E87.6 Hypokalemia; N28.9 Disorder of kidney and ureter, unspecified; D64.9 Anemia, unspecified; Z88.8 Allergy status to other drugs, medicaments and biological substances; K44.9 Diaphragmatic hernia without obstruction or gangrene; K21.9 Gastro-esophageal reflux disease without esophagitis; Z79.899 Other long term (current) drug therapy
CPT/HCPCS: 90004; 90100; 90616; 91320; 92235; 92530; 92610; 92720; 93140; 94060; 95059

== ENCOUNTER 2017-04-04 11:39 | Outpatient (CLI) | payer OTHER ==
--- NOTE | 2017-04-04 13:27 | DIAGNOSTIC IMAGING REPORT ---
PROCEDURE: US BREAST ULTRASOUND - RIGHT INDICATION: Follow-up previously biopsied right breast carcinoma. TECHNIQUE: High resolution ruff scale and color Doppler sonographic images of the right breast. COMPARISON: Comparison is made to outside breast ultrasound studies from [facility] (06/05/2016, 11/27/2015). Comparison is also made to right mammogram right breast ultrasound from [facility] (01/07/2014). FINDINGS: There is a stable 1.4 cm ovoid mass in the retroareolar region right breast with probable dystrophic calcification. There is no evidence of neoplastic progression. IMPRESSION: 1. No change in 1.4 cm ovoid retroareolar mass compatible with known right breast carcinoma. 2. Findings discussed with the patient. RESULT CODE: 6- Known cancer. A. A negative report should not delay biopsy if a dominant or clinically suspicious mass is present. 10-15% of cancers are not identified by x-ray. B. A negative report may reinforce clinical impression. C. Adenosis and dense breasts may obscure an underlying neoplasm. D. False positive reports average 6-10%. E.. A yearly screening mammogram is recommended. A reminder letter will be scheduled.
== END 2017-04-04 23:00 | disposition home or self-care (01) ==
LOC: US SRH 11:39
DX: C50.911 Malignant neoplasm of unspecified site of right female breast (principal)